=== PATIENT | male | born 2000 | race Caucasian/White ===

== ENCOUNTER 2022-08-21 13:45 | Emergency (ER) | payer MEDICAID, SELFPAY ==
--- NOTE | ~2022-08-21 | CT_ITS ---
EXAMINATION: CT ABDOMEN AND PELVIS WITH CONTRAST CLINICAL INFORMATION: Left lower quadrant pain. Diarrhea. Rule out colitis. COMPARISON: None TECHNIQUE: Multidetector volumetric images were obtained from the superior aspect of the liver through the pubic symphysis following administration 85 mL of Omnipaque 350 intravenous contrast. Sagittal and coronal reformatted images were obtained on the technologist's workstation. Oral contrast: No This CT examination was performed using dose optimization techniques as appropriate, variously including the following: *Automated exposure control *Adjustment of mA and/or kV according to patient size (this includes techniques or standardized protocols for targeted exams where dose is matched to indication/reason for exam; i.e. extremities or head) *Use of iterative reconstruction technique DLP: 474 mGy-cm FINDINGS: LUNG BASES: The visualized lung bases are unremarkable. LIVER, GALLBLADDER, AND BILIARY TREE: The liver is normal in size, shape, and attenuation. No focal hepatic lesion or biliary ductal dilatation is present. The gallbladder is unremarkable with no evidence of radiopaque gallstones, gallbladder wall thickening, or obvious pericholecystic inflammatory changes. PANCREAS: Unremarkable. SPLEEN: Unremarkable. ADRENAL GLANDS: Unremarkable. KIDNEYS AND URETERS: The kidneys are normal in size, shape, and attenuation. No hydronephrosis, hydroureter, or calculi seen. No perinephric stranding. BLADDER: Decompressed with no gross abnormality. GASTROINTESTINAL TRACT: The stomach is unremarkable. Normal caliber small bowel. No obstruction. No colonic wall thickening or acute inflammation. No free air or free fluid. Partially visualized normal appendix. ABDOMINAL WALL: No significant hernia is appreciated. LYMPH NODES: Normal. VASCULAR: Unremarkable. PELVIC VISCERA: The prostate and seminal vesicles are unremarkable. OSSEOUS STRUCTURES: No acute or suspicious osseous abnormality. Multilevel Schmorl's nodes are noted. Transitional anatomy of the lumbosacral junction. CT/CT abdomen pelvis w IV con IMPRESSION: No acute findings in the abdomen or pelvis. No acute inflammatory changes. Fleischner guidelines were followed.
[2022-08-21 15:04] VITALS: BP 129/73; PULSE 83; RESP 18; TEMP 36.6; O2SAT 96; BMI 25.0
[2022-08-21 15:32] LABS: MANUAL DIFF FLAG NO
[2022-08-21 15:34] LABS: Basophils Percent Auto 0.2 % (0-2); Hematocrit 47.9 % (42.0-52.0); Hemoglobin 16.1 g/dl (14.0-18.0); Imm Gran Abs Auto 0.04 X10*3/uL (0.00-0.03); Imm Gran Pct Auto 0.3 % (0.0-0.4); Lymphocytes Absolute Auto 1.6 X10*3/uL (1.2-4.9); Lymphocytes Percent Auto 13.6 % (20-40); Mean Corpuscular HGB Conc 33.6 g/dl (31.0-36.0); Mean Corpuscular Hemoglobin 28.6 pg (27.0-33.0); Mean Corpuscular Volume 85.1 fL (80.0-98.0); Monocytes Absolute Auto 0.7 X10*3/uL (0.1-1.2); Monocytes Percent Auto 5.6 % (2-11); Neutrophils Absolute Auto 9.7 x10*3/uL (2.0-8.3); Neutrophils Percent Auto 80.3 % (45-73); Platelet Count 328 X10*3/uL (160-400); Red Blood Count 5.63 X10*6/uL (4.60-5.80)
[2022-08-21 15:35] LABS: Appearance Urine Clear; Color Urine Yellow; Glucose Urine UA Negative (Negative); Leukocyte Esterase Urine Negative (Negative); Nitrite Urine Negative (Negative); PH >= 9.0 (5.0-9.0); Urine Blood Negative (Negative); Urine Ketones 40 mg/dL (Negative); Urine Protein Trace mg/dL (Neg-Trace)
[2022-08-21 16:02] LABS: Alanine Aminotransferase 21 U/L (0-40); Albumin Level 5.5 g/dL (3.5-5.0); Alkaline Phosphatase 56 U/L (39-117); Aspartate Amino Transferase 23 U/L (5-37); Bilirubin Direct 0.5 mg/dL (0.0-0.5); Bilirubin Total 1.5 mg/dL (0.0-1.0); Blood Urea Nitrogen 7 mg/dL (9-16); Calcium 10.3 mg/dL (8.4-10.2); Creatinine Clr Calc Pharmacy 110.9; Estimated Glomerular Filt Rate > 60; Glucose Random 102 mg/dL (60-115); Lipase 12 U/L (8-78); Total Protein 8.1 g/dL (6.5-8.0)
[2022-08-21 16:13] LABS: Anion Gap 24 (12-20); Carbon Dioxide 19 mmol/L (22-29); Chloride 100 mmol/L (96-108); Potassium 4.2 mmol/L (3.3-5.1); Sodium 139 mmol/L (135-145)
[2022-08-21 21:34] VITALS: BP 142/99; PULSE 95; RESP 18; TEMP 36.7; O2SAT 98
--- NOTE | 2022-08-21 22:45 | ED_ITS ---
HPI - Nausea/Vomiting/Diarrhea General Chief complaint: Nausea/Vomiting/Diarrhea Stated complaint: Abd pain/Diarrhea sent by urgent care Time Seen by Provider: 08/21/22 22:27 Source: patient Mode of arrival: ambulatory Limitations: no limitations History of Present Illness HPI Narrative: 21-year-old male who presents emergency department for evaluation of abdominal pain, nausea, vomiting and diarrhea x1 month. The patient states that he has been having diffuse abdominal cramping daily for the past month. He states the pain is a sharp pain located throughout his entire abdomen. States he has also had acid reflux symptoms. He states that this caused him to vomit multiple times a day. States that he mainly vomits bile but occasionally vomits blood. Patient also states that he has had 6-7 loose, watery bowel movements per day. He states that occasionally he notices blood in his bowel movements. Patient states that he used to weigh 210 lb he now weighs 195 lb(unintentional 15 lb weight loss). The patient denies any antibiotic treatment in the last 6 months, he has not traveled out of the country. The patient states that he has not seen a doctor for these symptoms. MD elicited complaint: nausea, vomiting, diarrhea and abdominal pain Onset (ago): month(s) (1) Description of vomiting: bilious and blood-streaked Description of diarrhea: watery and other (Occasional blood noted) Associated nausea: Yes Associated abdominal pain: Yes Location of pain: diffuse Pain consistency: constant Pain scale (0-10): 6 Quality: sharp Exacerbating factors: none Relieving factors: none Associated symptoms: other (15 lb weight loss) Related Data Allergies Allergy/AdvReac Type Severity Reaction Status Date / Time Penicillins [PCN] Allergy Rash Verified 08/21/22 15:07 Review of Systems Review of Systems: Yes all other systems are reviewed and are negative Gastrointestinal: Gastrointestinal: Reports nausea PMFSH Past Medical History PMFSH Narrative: Past medical history: None. Past surgical history: None. Social history: The patient is a student at the [employer], states he is a senior in [employer] from [employer]. He denies tobacco use. He denies alcohol use. He does smoke marijuana multiple times a day, daily. Social History Social History Advance Directives: No Advance Directives Information Provided: No Physical Exam Vital Signs: Vital Signs: Last Vital Signs Temp 98.0 F 08/21/22 21:34 Pulse 52 08/22/22 04:41 Resp 16 08/21/22 23:57 BP 106/46 L 08/22/22 04:41 Pulse Ox 97 08/22/22 04:41 O2 Del Method 08/22/22 04:41 BMI result Body Mass Index 25.0 Const: Other: Awake, alert, male patient, does not appear to be in distress, very pleasant cooperative, answers all questions appropriately, the patient is muscular but has a very thin abdomen review BMI of 25 HEENT: Head: Yes normal to inspection, Yes normocephalic and Yes atraumatic Ears: external ears normal General nose exam: Normal external nose present Face and sinus: Yes normal facial exam Mouth: Normal oral and palatal mucosa present Throat: Yes posterior oropharynx normal Eyes: General: appearance normal, both eyes and all related structures Pupils: Equal, round and reactive pupils present Neck: Neck: Yes normal visual inspection, Yes no lymphadenopathy, Yes trachea midline and Yes supple Chest: Chest palpation & inspection: normal inspection of the chest and normal palpation of entire chest wall Resp: Effort & Inspection: normal respiratory effort and able to speak in complete sentences Auscultation: clear to auscultation bilaterally Cardio: Rate: regular rate Rhythm: regular rhythm Heart sounds: S1 normal heart sound present, S2 normal heart sound present and no murmurs GI: Inspection: Yes normal to inspection (Very thin, muscular abdomen, nondistended) Palpation (GI): Soft to palpation, Tenderness to palpation present (GI) (Diffuse mild tenderness) in the epigastrum (Moderate) and in the LLQ (Moderate) and no guarding Auscultation: normal bowel sounds : General: Yes no CVA tenderness Back/Spine/Pelvis: Back: no CVA tenderness Skin: General skin exam: no rashes or lesions noted Neuro: Cranial nerves: Yes CN's II-XII intact bilaterally and Yes Equal, round and reactive pupils present Cognition (Neuro): normal cognition Motor e xam (neuro): 5/5 motor strength present throughout Extrem: General: Yes normal to inspection Psych: Appearance: grossly normal Speech and movement: Normal speech and movement present Affect: normal affect Attitude: cooperative Thought process: Normal thought process present Thought content: Normal thought content present Course Course Course Narrative: 21-year-old male who presents emergency department for evaluation of nausea, vomiting, diarrhea and abdominal pain x1 month. The patient's has heartburn like symptoms as well. He has had multiple episodes of vomiting per day as well as multiple episodes of loose diarrheal stool daily. Patient has not been on antibiotics recently and has not traveled out of the country. Patient's vital signs were normal. The patient's examination did reveal a thin, muscular abdomen which was diffusely tender with increased tenderness palpation of the epigastric area and left lower quadrant area. Differential includes was not limited to also have colitis, Crohn's disease, nonspecific colitis, infectious colitis, irritable bowel syndrome. Laboratory evaluation including CBC, CMP, lipase and urinalysis was ordered. I did order a stool GI panel. CT scan of the abdomen pelvis with IV contrast was also ordered. The patient was ordered to get normal saline x1 L. He was also treated with Toradol 15 mg IV, Pepcid 20 mg IV and Zofran 4 mg IV. 2254: Laboratory evaluation: CBC was normal. CMP revealed a low bicarb of 19 with an anion gap of 24. LFTs were normal. Lipase was not elevated. Urinal ysis negative. 0234: The CT scan of the patient's abdomen pelvis did not reveal any acute findings to explain the patient's symptoms. The patient did get a 2nd dose of Toradol and Zofran without any improvement of his symptoms. I ordered Maalox 30 cc, viscous lidocaine 10 cc and 10 cc orally to see if this improves his pain. The patient was not able to give us a stool sample. 0341: The patient states that the above medications made his pain worse. At this point I am going to try morphine 4 mg IV to see if this helps with his pain. 0532: The patient's pain did improve after the above treatment. The patient was started on Prilosec 20 mg once a day, Gaviscon 3 times a day and Tylenol as needed for pain. The patient is a [facility] tonight advised him to follow-up with [facility] for referral to a rand cementer. He was given the name of our rand cementer on-call as well. MDM - Nausea/Vomiting/Diarrhea Lab Data Result diagrams: 08/21/22 15:20 08/21/22 15:20 Labs: Lab Results 08/21/22 08/21/22 08/21/22 Range/Units 15:20 15:20 15:20 WBC 12.0 H (4.8-10.8) X10*3/uL RBC 5.63 (4.60-5.80) X10*6/uL Hgb 16.1 (14.0-18.0) g/dl Hct 47.9 (42.0-52.0) % MCV 85.1 (80.0-98.0) fL MCH 28.6 (27.0-33.0) pg MCHC 33.6 (31.0-36.0) g/dl RDW 12.0 (11.0-16.0) % Plt Count 328 (160-400) X10*3/uL MPV 11.0 (9.4-12.4) fL Immature Gran % (Auto) 0.3 (0.0-0.4) % Neut % (Auto) 80.3 H (45-73) % Lymph % (Auto) 13.6 L (20-40) % [place] % (Auto) 5.6 (2-11) % Eos % (Auto) 0.0 (0-4) % Baso % (Auto) 0.2 (0-2) % Lymph # (Auto) 1.6 (1.2-4.9) X10*3/uL [place] # (Auto) 0.7 (0.1-1.2) X10*3/uL Eos # (Auto) 0.0 (0.0-0.4) X10*3/uL Baso # (Auto) 0.0 (0.0-0.2) X10*3/uL Abs Immat Gran (auto) 0.04 H (0.00-0.03) X10*3/uL Absolute Neuts (auto) 9.7 H (2.0-8.3) x10*3/uL Absolute Nucleated RBC 0.000 (0.0-0.012) X10*3/uL Nucleated RBC % (auto) 0.0 (0.0-0.2) /100WBC Sodium 139 (135-145) mmol/L Potassium 4.2 (3.3-5.1) mmol/L Chloride 100 (96-108) mmol/L Carbon Dioxide 19 L (22-29) mmol/L Anion Gap 24 H (12-20) BUN 7 L (9-16) mg/dL Creatinine 1.19 (0.5-1.4) mg/dL Estim Creat Clear Calc 110.9 Estimated GFR > 60 Random Glucose 102 (60-115) mg/dL Calcium 10.3 H (8.4-10.2) mg/dL Total Bilirubin 1.5 H (0.0-1.0) mg/dL Direct Bilirubin 0.5 (0.0-0.5) mg/dL AST 23 (5-37) U/L ALT 21 (0-40) U/L Alkaline Phosphatase 56 (39-117) U/L Total Protein 8.1 H (6.5-8.0) g/dL Albumin 5.5 H (3.5-5.0) g/dL Lipase 12 (8-78) U/L Urine Color Yellow Urine Appearance Clear Urine pH >= 9.0 (5.0-9.0) Ur Specific [place] 1.020 (1.005-1.025) Urine Protein Trace (Neg-Trace) mg/dL Urine Glucose (UA) Negative (Negative) mg/dL Urine Ketones 40 (Negative) mg/dL Urine Blood Negative (Negative) Urine Nitrite Negative (Negative) Ur Leukocyte Esterase Negative (Negative) Discharge Plan Discharge Clinical Impression: Gastritis Qualifiers: Chronicity: acute Gastritis bleeding: without bleeding Diarrhea Qualifiers: Diarrhea type: unspecified type Qualified Code(s): R19.7 - Diarrhea, unspecified Abdominal pain Qualifiers: Abdominal location: generalized Qualified Code(s): R10.84 - Generalized abdominal pain Patient Disposition: Home, Self-Care Instructions: Gastritis (ED), Acute Diarrhea (ED) Additional Instructions: Your laboratory evaluation was unremarkable. The CT scan of your abdomen pelvis without IV contrast revealed no acute findings in the abdomen or pelvis and no acute inflammatory changes to explain your pain or your diarrhea. I am treating you for possible gastritis (acid inflammation of your stomach). Take Prilosec (omeprazole) 20 mg pills, 1 pill once a day for 1 month. This medication shuts off your acid production and let us the inflammation in your esophagus and stomach heal. Take extra-strength Gaviscon liquid as directed on the bottle 3 times a day as needed for pain Take Tylenol (acetaminophen) 500 mg pills, 2 pills every 4 to 6 hours as needed for pain. Follow-up with [facility] for re-evaluation and for referral to a rand cementer for further evaluation of your abdominal pain and diarrhea. Follow-up with your doctor in 2 days. Please return to the emergency department if your symptoms get worse or if you develop any symptoms that are concerning to you. You can try to call our rand cementer to see if they will see you without a referral. Referrals: Jamison Bai MD [Physician] - 2 weeks (Lower abdominal pain times months, diarrhea x1 month, upper abdominal pain with vomiting, unintentional 15 lb weig ht loss. CBC, CMP, lipase, urinalysis unremarkable. Unable to obtain stool sample. CT scan abdomen pelvis with IV contrast revealed no clear cause for patient's symptoms.)
[2022-08-21] MEDS: Ketorolac Tromethamine 15 MG/ML VIAL IVPUSH (22:53)
[2022-08-21] MEDS: ondansetron HCL 4 MG/2 ML VIAL IVPUSH (22:53)
[2022-08-21] MEDS: 0.9 % Sodium Chloride 1,000 ML 999 ML IV (22:55)
[2022-08-21] MEDS: Famotidine/PF 20 MG/2 ML VIAL IVPUSH (22:55)
[2022-08-21 23:57] VITALS: BP 104/32; PULSE 63; RESP 16; O2SAT 98
[2022-08-22] MEDS: ondansetron HCL 4 MG/2 ML VIAL IVPUSH (00:46)
[2022-08-22] MEDS: Ketorolac Tromethamine 15 MG/ML VIAL IVPUSH (00:46)
[2022-08-22] MEDS: iohexoL 350 MG/ML 100 ML INFUS..BTL 85 ML IV (01:10)
[2022-08-22] MEDS: Lidocaine HCl Viscous 2 % 15 ML SOLUTION 10 ML PO (02:48)
[2022-08-22] MEDS: Magnesium Hydrox/Alum Hydrox 30 ML ORAL.SUSP PO (02:51)
[2022-08-22] MEDS: PHENobarb/Hyoscy/Atropine/Scop 10 ML ELIXIR PO (02:51)
[2022-08-22] MEDS: Morphine Sulfate 4 MG/ML CARTRIDGE IVPUSH (03:52)
[2022-08-22 04:41] VITALS: BP 106/46; PULSE 52; O2SAT 97
== END 2022-08-22 10:33 | disposition home or self-care (01) ==
PROVIDERS: Emergency Provider Emergency Medicine Emergency Medical Services
DX: K29.70 Gastritis, unspecified, without bleeding (principal); R11.2 Nausea with vomiting, unspecified; R19.7 Diarrhea, unspecified; R10.84 Generalized abdominal pain; Z79.899 Other long term (current) drug therapy
CPT/HCPCS: 36415; 74177; 80053; 81003; 82248; 83690; 85025; 96374; 96375; 96376; 99284; J1885; J2270; J2405; Q9967

== ENCOUNTER 2022-08-26 09:03 | Outpatient (REF) | payer MEDICAID, SELFPAY ==
[2022-08-26 10:31] LABS: HBS Num1 1.29 mIU/mL (0-7.99); HBc Num1 0.05 S/CO (0.00-0.79); Hepatitis B Core Antibody Nonreactive (Nonreactive); Hepatitis B Surface Antigen Negative (Negative); ~HepC Num1 0.06 S/CO (0.00-0.79); ~Hepatitis B Surface Antibody NONREACTIVE (Nonreactive); ~Hepatitis C Antibody Nonreactive (Nonreactive)
[2022-08-26 10:33] LABS: Ferritin 166 ng/mL (20-250); TSH reflex Free T4 1.09 uIU/mL (0.32-4.0); Vitamin D 25-OH Total 31.9 ng/mL (>30)
[2022-08-26 10:36] LABS: Alanine Aminotransferase 22 U/L (0-40); Albumin Level 5.2 g/dL (3.5-5.0); Alkaline Phosphatase 51 U/L (39-117); Anion Gap 21 (12-20); Aspartate Amino Transferase 21 U/L (5-37); Bilirubin Direct 0.5 mg/dL (0.0-0.5); Bilirubin Total 1.4 mg/dL (0.0-1.0); Blood Urea Nitrogen 13 mg/dL (9-16); C Reactive Protein 0.02 mg/dL (< or = 0.50); Calcium 9.9 mg/dL (8.4-10.2); Carbon Dioxide 23 mmol/L (22-29); Chloride 100 mmol/L (96-108); Estimated Glomerular Filt Rate > 60; Glucose Random 98 mg/dL (60-115); Potassium 4.2 mmol/L (3.3-5.1); Sodium 140 mmol/L (135-145)
[2022-08-26 11:07] LABS: Vitamin B12 1332 pg/mL (200-900)
[2022-08-27 05:02] LABS: Hepatitis A Antibody IgG Nonreactive (Nonreactive); ~Hepatitis A Antibody IgG 0.18 S/CO (0.00-0.99)
[2022-08-28 15:12] LABS: Immunoglobulin A 160 mg/dL (47-310)
[2022-08-28 23:16] LABS: Transglutaminase IgA <1.0 U/mL
== END 2022-08-26 09:04 | disposition home or self-care (01) ==
LOC: HO.LAB 09:03
PROVIDERS: Visit Provider Internal Medicine
DX: R10.84 Generalized abdominal pain (principal); R19.7 Diarrhea, unspecified; R11.0 Nausea; R63.4 Abnormal weight loss
CPT/HCPCS: 36415; 80048; 82040; 82247; 82248; 82306; 82607; 82728; 82746; 82784; 84075; 84443; 84450; 84460; 86140; 86364; 86704; 86706; 86708; 86803; 87340; 99202

== ENCOUNTER 2022-08-27 08:02 | Outpatient (REF) | payer MEDICAID, SELFPAY ==
[2022-08-27 12:56] LABS: Adenovirus F 40/41 Not Detected (Not Detect.); Astrovirus Not Detected (Not Detect.); Campylobacter Not Detected (Not Detect.); Cryptosporidium Not Detected (Not Detect.); Cyclospora cayetanensis Not Detected (Not Detect.); E. coli EAEC Not Detected (Not Detect.); E. coli EPEC Not Detected (Not Detect.); E. coli ETEC Not Detected (Not Detect.); E. coli STEC Not Detected (Not Detect.); Entamoeba histolytica Not Detected (Not Detect.); Giardia lamblia Not Detected (Not Detect.); Plesiomonas shigelloides Not Detected (Not Detect.); Salmonella Not Detected (Not Detect.); Shigella sp./EIEC Not Detected (Not Detect.); Vibrio Not Detected (Not Detect.); Vibrio Cholerae Not Detected (Not Detect.); Yersinia enterocolitica Not Detected (Not Detect.)
[2022-08-27 12:57] LABS: Norovirus GI/GII Not Detected (Not Detect.); Rotavirus A Not Detected (Not Detect.); Sapovirus Not Detected (Not Detect.)
[2022-09-01 22:47] LABS: Calprotectin, Fecal 73 mcg/g
== END 2022-08-27 08:03 | disposition home or self-care (01) ==
LOC: HO.LNP 08:02
PROVIDERS: Visit Provider Internal Medicine
DX: R10.9 Unspecified abdominal pain (principal); R11.10 Vomiting, unspecified; R63.4 Abnormal weight loss; R19.7 Diarrhea, unspecified
CPT/HCPCS: 83993; 87507

== ENCOUNTER → 2022-09-09 08:01 | Outpatient (BNVA) | payer MEDICAID, SELFPAY | PROVIDERS: Visit Provider Internal Medicine | DX: R10.84 Generalized abdominal pain (principal); R19.7 Diarrhea, unspecified; R11.10 Vomiting, unspecified; R63.4 Abnormal weight loss | CPT/HCPCS: 99212 ==

== ENCOUNTER 2022-10-08 09:37 | Outpatient (REF) | payer MEDICAID, SELFPAY ==
--- NOTE | ~2022-10-08 | US_ITS ---
EXAMINATION: US ABDOMEN COMPLETE CLINICAL INFORMATION: Vomiting. Abdominal pain. COMPARISON: CT abdomen and pelvis 08/22/2022. TECHNIQUE: Real-time imaging of the abdominal viscera. Technically difficult study secondary to bowel gas and body habitus. FINDINGS: PANCREAS: Normal. ABDOMINAL AORTA: The proximal and distal segments are normal in caliber. The distal segment is poorly visualized due to overlapping bowel gas. INFERIOR VENA CAVA: Visualized portions are normal. LIVER: Normal. The liver is normal in size. The liver contour is normal. Parenchymal echogenicity is normal. No focal hepatic lesion. There is no intrahepatic biliary duct dilatation seen. GALLBLADDER: Partially contracted. The gallbladder is physiologically distended without evidence of stones, sludge, polyps, wall thickening or pericholecystic fluid. COMMON BILE DUCT: Normal in caliber measuring 0.4 cm in diameter. RIGHT KIDNEY: Normal. No hydronephrosis. No renal calculi or focal parenchymal lesions. The kidney measures 10.5 cm in maximum dimension. LEFT KIDNEY: Normal. No hydronephrosis. No renal calculi or focal parenchymal lesions. The kidney measures 9.7 cm in maximum dimension. SPLEEN: Normal. The spleen measures 11.6 cm in maximum dimension. FREE FLUID: None. US/US abdomen complete IMPRESSION: Unremarkable examination.
== END 2022-10-08 09:38 | disposition home or self-care (01) ==
LOC: HO.US 09:37
PROVIDERS: Visit Provider Internal Medicine
DX: R10.9 Unspecified abdominal pain (principal); R11.10 Vomiting, unspecified
CPT/HCPCS: 76700

== ENCOUNTER 2022-10-30 13:04 | Day surgery (SDC) | payer MEDICAID, SELFPAY ==
[2022-10-27 14:52] VITALS: BMI 24.6
--- NOTE | 2022-10-29 10:31 | HO.ANESPROP2 ---
Documented by User: Chantel Bonilla NP 10/29/22 10:31 HPI - Anesthesia Eval Consult details Narrative: 21yo M for Upper Endoscopy and Colonoscopy PMF Active Problems Active Problems: All Active Problems (Updated 10/27/22 @ 14:43 by Ethel Murcia RN) Vomiting (Acute) Weight loss (Acute) Past Medical History Medical History (Updated 10/27/22 @ 14:43 by Ethel Murcia RN) Gastritis Family History Family History Paternal Grandfather Colon cancer, Onset Age: 80 Surgical History Surgical History (Updated 10/27/22 @ 14:53 by Ethel Murcia RN) Surgical history unknown Social History Social History (Updated 10/30/22 @ 14:51 by Marisol Vazquez MD) Household Members: Other Alcohol intake: never Patient Tobacco Use Status: Never used Tobacco Substance Use Type: Crack/Cocaine and Marijuana Last Used Substance: Days (ago) Last Used Substance Other:: Cocaine several months ago Are you DNR?: No Advance Directives: No Advance Directives Information Provided: Yes Meds Allergies Allergy/AdvReac Type Severity Reaction Status Date / Time Penicillins [PCN] Allergy Rash Verified 09/09/22 08:20 Home Medications Medication Instructions Recorded Confirmed Last Taken Type simethicone 125 mg chewable tablet 125 mg PO TID PRN bloating/gas 08/26/22 10/27/22 Unknown History (Gas Relief (simethicone)) Exam Exam Date and Time: October 29, 2022 1031 Height,Weight and Vital Signs: Height 6 ft 1 in Weight 84.822 kg Pertinent Lab Results Pertinent Lab Results: Laboratory Tests 08/21/22 08/26/22 15:20 09:16 WBC 12.0 H Hgb 16.1 Hct 47.9 Plt Count 328 Sodium 140 Potassium 4.2 Chloride 100 Carbon Dioxide 23 BUN 13 D Creatinine 1.20 Assessment and Plan Assessment Anesthesia Assessment: Chart Reviewed Documented by User: Marisol Vazquez MD 10/30/22 14:52 [facility] Past Medical History Medical History (Updated 10/27/22 @ 14:43 by Ethel Murcia RN) Gastritis Family History Family History Paternal Grandfather Colon cancer, Onset Age: 80 Family history of problems with anesthesia: No Surgical History Surgical History (Updated 10/27/22 @ 14:53 by Ethel Murcia RN) Surgical history unknown History of Problems with Anesthesia: No (Never had surgery) Social History Social History (Updated 10/30/22 @ 14:51 by Marisol Vazquez MD) Household Members: Other Alcohol intake: never Patient Tobacco Use Status: Never used Tobacco Substance Use Type: Crack/Cocaine and Marijuana Last Used Substance: Days (ago) Last Used Substance Other:: Cocaine several months ago Are you DNR?: No Advance Directives: No Advance Directives Information Provided: Yes Meds Allergies Allergy/AdvReac Type Severity Reaction Status Date / Time Penicillins [PCN] Allergy Rash Verified 09/09/22 08:20 Home Medications Medication Instructions Recorded Confirmed Last Taken Type simethicone 125 mg chewable tablet 125 mg PO TID PRN bloating/gas 08/26/22 10/27/22 Unknown History (Gas Relief (simethicone)) Exam Height,Weight and Vital Signs: Height 6 ft 1 in Weight 84.822 kg Vital Signs Temp Pulse Resp BP Pulse Ox O2 Del Method 10/30/22 13:46 98.0 F 84 16 123/77 98 Room Air Airway Mallampati Class: II TM Dist: >3cm Neck ROM: Full Loose/Missing/Broken Teeth: Yes (Chipped tooth bottom front) Heart: RRR Lungs: CTAB Assessment and Plan Assessment Anesthesia Assessment: Anesthesia Plan Discussed Final Anesthetic Review Family History of Problems with Anesthesia: No History of Problems with Anesthesia: No (Never had surgery) NPO: Yes ASA Class: II Final Preanesthetic Review: No Changes in Pt Med Stat, Meds/Allgs Chart Reviewed, Consent Obtained/Reviewed and Anes Risks/Benef Reviewed Patient Risk: Low Procedure Risk: Low Assessment/Block/Sedation in SS: Assess/Block/Sedation-SS Anesthetic Plan Anesthetic Plan: MAC: Disposition: Standard PACU
[2022-10-30] VITALS (8 sets, daily range): BP systolic 99–125; BP diastolic 35–77; PULSE 58–84; RESP 14–18; TEMP 36.4–36.8; O2SAT 94–100; BMI 24.4
[2022-10-30] MEDS: Lactated Ringers 1,000 ML 100 ML IVCONT (13:45)
--- NOTE | 2022-10-30 14:55 | MHC.SHP ---
Pre-Procedural Eval Section A Date of Service: 10/30/22 Section B Chief Complaint: Diarrhea, Generalized abdominal pain, weight loss Details of Present Illness: 21 y.o M with hx of abd pain, chronic diarrhea and unintentional weight loss here for EGD/colo to exclude IBD Relevant Social History: Other (specify) (marijuana) Present Medications: see Short Stay Collaborative assessment History of Previous Operations: No relevant previous surgery Allergies: Allergies Allergy/AdvReac Type Severity Reaction Status Date / Time Penicillins [PCN] Allergy Rash Verified 09/09/22 08:20 Review of Systems Review of Systems Comment: 10 point ROS negative except as above Exam Exam Comment: Gen appear: No acute distress, well nourished HEENT: no icterus Chest: No overt resp distress Abd: soft, nontender, nondistended Psych: Stable affect, answering questions appropriately Neuro: A/Ox3 noted to move all extremities spontaneously Ext: no peripheral edema Plan Diagnosis/Plan: Unchanged I have reviewed the history and physical and performed a pertinent physical examination on my patient. No changes have occurred unless specified.
--- NOTE | 2022-10-30 14:56 | P.OP_ITS ---
Operative Note Operative Note Date of Service: 10/30/22 Narrative: Procedure:?Esophagogastroduodenoscopy and colonoscopy Endoscopist:?Ban Lomeli MD Indication:?Abd pain, chronic diarrhea, unintentional weight loss Anesthesia Provider:?Dr Marisol Vazquez Anesthesia Type:?MAC Instrument:?Olympus GIF-H190 and PCF-H190L ?? EGD Procedure:?? The procedure, indications, preparation and potential complications were reviewed with the patient, who indicated understanding and gave written informed consent to proceed. A physical exam was performed. The endoscope was introduced through the bite block, and advanced to the second part of duodenum. The mucosa was carefully examined on slow withdrawal of the endoscope. The patient tolerated the procedure well. There were no immediate complications.? ? EGD Findings:? * Esophagus:? Normal mucosa noted in the entire esophagus. The Z line was at 39 cm. Mid and lower esophagus cold forceps biopsies were taken to rule out eosinophilic esophagitis. * Stomach:? Focal area of abnormal mucosa with erythema and erosions noted in the fundus. Cold forceps biopsies were obtained and sent separately. Random cold forceps biopsies were also taken to rule out H Pylori. * Duodenum:? Normal mucosa was noted in the whole of the examined duodenum. Cold forceps biopsies were taken from duodenal bulb and second portion of the duodenum to rule out celiac sprue. Colonoscopy procedure:?? The patient was then turned for the colonoscopy. A digital rectal exam was performed which was normal. The colonoscope was then inserted through the anus and advanced through the colon to the cecum at 65 cm and terminal ileum. Appendiceal orifice and IC valve was identified. Mucosa was carefully examined under high definition white light as the instrument was slowly withdrawn in a retrograde panoramic fashion. Retroflexion was performed in rectum. The procedure was not difficult. There were no immediate obvious complications. The quality of the prep was BBPS: 3+3+3 = excellent Withdrawal time 9 minutes. Limitations: No limitations.? Colonoscopy Findings: Mucosa: Normal to cecum and terminal ileum. Random biopsies from right and left side of the colon were taken to r/o microscopic colitis. Protruding lesions: * Small internal hemorrhoids without stigmata of recent bleeding. Impression:? * Normal esophagus (biopsy) * Focal gastritis (biopsy) * Normal duodenum (biopsy) * Normal colon and terminal ileum mucosa (biopsy) * Small internal hemorrhoids Recommendations:?? * Follow biopsy results. Our office will call or send a letter with results within 7-10 days. * If H Pylori +, will prescribe eradication therapy followed by test of cure. * Resume CRC screening at 45 years of age. Above has been reviewed with the patient. Relevant educational hand outs were provided at discharge.? ?
== END 2022-10-30 17:41 | disposition home or self-care (01) ==
PROVIDERS: Visit Provider Internal Medicine
PROC: (CPT 45380; principal; 2022-10-30 14:00)
DX: R63.4 Abnormal weight loss (principal); Z68.24 Body mass index [BMI] 24.0-24.9, adult; R10.84 Generalized abdominal pain; K52.9 Noninfective gastroenteritis and colitis, unspecified; K31.89 Other diseases of stomach and duodenum; K64.8 Other hemorrhoids; Z88.0 Allergy status to penicillin
CPT/HCPCS: 45380; 43239; 88305; 88342; J2250